=== PATIENT | male | born 1995 | race American Indian/Alaskan Native ===

== ENCOUNTER 2017-08-01 00:10 | Emergency (ER) | payer MEDICAID ==
--- NOTE | 2017-08-01 03:07 | Emergency Department Report ---
ED Animal Bite HPI - General Chief Complaint: Animal Bite Stated Complaint: ANIMAL BITE Time Seen by Provider: 08/01/17 02:16 Source: patient, family Mode of arrival: Ambulatory Limitations: No Limitations - History of Present Illness Initial Comments: Patient here reports that he was walking home at about 10 PM and a dog in his neighborhood got loose and bit him in his right palm. He is reporting there is a laceration to his right palm and he does not know if the dog is up-to-date on rabies shot. Triage nurse left messages animal control. Patient says that he always sees the [employer] walking the dog developed collar in the leash and he is pretty sure that the dog is indoor dog but he doesn't know if the dog is up-to- date on rabies shot. I discussed the patient usually after animal bite of unknown dog vaccination, and usually off for rabies vaccination and immunoglobulin. Patient wants to wait until later today to ask [employer] the dog is up-to-date on rabies vaccination because he said he speciated out is indoor dog and he probably got loose. He said the dog was not acting angry. Pain to right palm is 7 out of 10 and sharp worse with movement and better with resting. He said he placed A bandage over area because the ear was bleeding. Denies any restriction in movement fingers but reports pain with range of motion. No medication taken prior to coming to the emergency room and his tetanus vaccine is not up-to-date. Complaint: animal bite, animal-related injury, other (laceration) -: During the night Right: Hand (Palm, dog bite) Animal: dog Animal Control Notified: Yes Description: household pet, immunizations unknown, appeared well Mechanism: bite, contact with mucous membr Pain Description: sharp, intermittent Severity scale (0 -10): 7 Context: unprovoked Associated Symptoms: bleeding. denies: erythema, discharge from wound, fever, chills, rash, loss of consciousness, cough, headache, diaphoresis, shortness of breath Treatments Prior to Arrival: wound dressing(s) - Related Data Patient Tetanus UTD: No Previous Rx's Medication Instructions Recorded Last Taken Type Amoxicillin/K Clav Tab [Augmentin 1 tab PO Q12HR 10 Days #20 tab 08/01/17 Unknown Rx 875 mg] HYDROcodone/ACETAMINOPHEN [Kerby 1 each PO Q6H PRN #12 tablet 08/01/17 Unknown Rx 5-325 Tablet] Ibuprofen [Motrin] 600 mg PO Q8H PRN #21 tablet 08/01/17 Unknown Rx Allergies Allergy/AdvReac Type Severity Reaction Status Date / Time No Known Allergies Allergy Unverified 08/01/17 01:15 ED Review of Systems ROS: Stated complaint: ANIMAL BITE Other details as noted in HPI Comment: All other systems reviewed and negative Constitutional: no symptoms reported ENT: denies: throat pain Respiratory: no symptoms reported Cardiovascular: denies: chest pain, palpitations, edema, syncope Gastrointestinal: denies: abdominal pain, nausea, vomiting Musculoskeletal: arthralgia. denies: back pain, joint swelling, myalgia Skin: other (laceration from dog bite) Neurological: denies: headache, weakness, numbness, paresthesias, confusion, abnormal gait ED Past Medical Hx - Past Medical History Previous Medical History?: No - Surgical History Past Surgical History?: No - Family History Family history: no significant - Social History Smoking Status: Never Smoker Substance Use Type: None - Medications Home Medications: Home Medications Medication Instructions Recorded Confirmed Last Taken Type Amoxicillin/K Clav Tab [Augmentin 1 tab PO Q12HR 10 Days #20 tab 08/01/17 Unknown Rx 875 mg] HYDROcodone/ACETAMINOPHEN [Kerby 1 each PO Q6H PRN #12 tablet 08/01/17 Unknown Rx 5-325 Tablet] Ibuprofen [Motrin] 600 mg PO Q8H PRN #21 tablet 08/01/17 Unknown Rx ED Physical Exam - General Limitations: No Limitations General appearance: alert, in no apparent distress - Head Head exam: Present: atraumatic, normocephalic, normal inspection, other (normal exam) - Eye Eye exam: Present: normal appearance, PERRL, EOMI Pupils: Present: normal accommodation - ENT ENT exam: Present: normal exam, normal orophraynx, mucous membranes moist - Neck Neck exam: Present: normal inspection, full ROM, other (no C-spine tenderness). Absent: tenderness, meningismus, lymphadenopathy - Respiratory Respiratory exam: Present: normal lung sounds bilaterally. Absent: respiratory distress, chest wall tenderness - Cardiovascular Cardiovascular Exam: Present: regular rate, normal rhythm, normal heart sounds - Extremities Exam Extremities exam: Present: normal inspection, full ROM, tenderness (right Palm around laceration site), normal capillary refill, other (no clubbing, cyanosis or edema. +2 pulses to extremities. No neurovascular compromise. Patient with laceration to right palm, no signs of infection. No contusion or abrasions noted. No neurovascular compromise). Absent: pedal edema, joint swelling, calf tenderness - Expanded Upper Extremity Exam Right General: Present: laceration. Absent: normal inspection, abrasion, nail injury (#), foreign body, amputation, avulsion Shoulder Exam: Present: normal inspection, full ROM. Absent: tenderness, swelling, abrasion, laceration, ecchymosis, deformity, crepidus, dislocation, erythema, tenderness over AC joint Upper Arm exam: Present: normal inspection, full ROM. Absent: tenderness, swelling, abrasion, laceration, ecchymosis, deformity, crepidus, dislocation, erythema Elbow exam: Present: normal inspection, full ROM. Absent: tenderness, swelling , abrasion, laceration, ecchymosis, deformity, crepidus, dislocation, erythema, effusion, pain w/ pronation/supination, tenderness over radial head Forearm Wrist exam: Present: normal inspection, full ROM. Absent: tenderness, swelling, abrasion, laceration, ecchymosis, deformity, crepidus, dislocation, erythema, tenderness over anatomical snuff box, pain with axial thumb loading Hand Wrist exam: Present: full ROM (patient with full active range of motion but he reports pain to laceration site at right palm with movement of his fingers of right hand and he is right-handed.), tenderness (around laceration site to right palm.), laceration (right palm). Absent: normal inspection, swelling, abrasion, ecchymosis, deformity, crepidus, dislocation, erythema, amputation, nail avulsion, subungual hematoma Neuro motor exam: Present: wrist extension intact, thumb opposition intact, thumb IP flexion intact, thumb adduction intact, fingers 2-5 abduction intact Neurosensory exam: Present: 2-point discrimination, radial nerve intact, ulnar nerve intact, median nerve intact Vascular: Present: normal capillary refill, radial pulse, brachial pulse, ulnar pulse. Absent: vascular compromise, Pallo, pulse deficit radial art, pulse deficit ulnar art, pulse deficit brachial art - Back Exam Back exam: Present: normal inspection, full ROM, other (in place without any difficulties) - Neurological Exam Neurological exam: Present: alert, oriented X3, normal gait, reflexes normal. Absent: motor sensory deficit - Psychiatric Psychiatric exam: Present: normal affect, normal mood - Skin Skin exam: Present: warm, dry, normal color, other (laceration right palm) - Expanded Skin Exam Expanded Type of lesion: Present: laceration (right palm) Distribution of rash: RUE (right palm) Description of rash: Present: size (1 cm), tenderness, other (skin bleeding). Absent: erythematous, swelling, petechial, crusting, discharge ED Course Vital Signs 08/01/17 08/01/17 08/01/17 00:44 01:06 03:22 Temperature 98.7 F 98.7 F Pulse Rate 54 L 53 L Respiratory 18 18 18 Rate Blood Pressure 128/70 128/70 O2 Sat by Pulse 99 100 Oximetry - Reevaluation(s) Reevaluation #1: 08/01/17 03:47 Patient given Percocet 5/325 2 tablets by mouth in emergency room for pain., He was also given Ancef 1 g IM , booster 0.5 mL IM with no adverse reaction. Patient started on Augmentin by mouth. He decided that he was in await until later this morning to find out if dog is up-to-date on his vaccination to include rabies. See signed AMA on chart with patient refusing rabies vaccination until he finds out if the dog is up-to-date. He said he'll come back later today if the dog is not up-to-date. 08/01/17 04:02 Reevaluation #2: 08/01/17 04:02 Patient is stable and pain is controlled. X-ray report negative for fracture dislocation - Laceration /Wound Repair Right Palm Hand Wound Location: upper extremity (right Palm) Wound Length (cm): 1 Wound's Depth, Shape: superficial Wound Explored: no foreign body removed Irrigated w/ Saline (ccs): 500 Betadine Prep?: Yes Volume Anesthetic (ccs): 0 Wound Debrided: moderate Wound Repaired With: Steri-strips (5 Steri-Strips used loosely at laceration site) Number of Sutures: 5 Layer Closure?: No Sterile Dressing Applied?: Yes (sterile bulky dressing placed inside.) Critical care attestation.: If time is entered above; I have spent that time in minutes in the direct care of this critically ill patient, excluding procedure time. ED Disposition Clinical Impression: Hand pain, right Dog bite of right hand without complication Qualifiers: Encounter type: initial encounter Qualified Code(s): S61.451A - Open bite of right hand, initial encounter Laceration of right hand without complication, excluding fingers Qualifiers: Encounter type: initial encounter Qualified Code(s): S61.411A - Laceration without foreign body of right hand, initial encounter Disposition: - TO HOME OR SELFCARE Is pt being admited?: No Does the pt Need Aspirin: No Condition: Stable Instructions: Laceration (ED), Skin Adhesive Care (ED), Arthralgia (ED), Acute Wound Care (ED) Additional Instructions: Take antibiotic as prescribed Follow-up with your primary care physician in 2 days and if he do not have a primary care physician follow-up at [facility]. Keep affected area clean and dry. 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 Please return to emergency room if you develop increasing redness, streaking, fever, difficulty moving fingers of right hand or difficulty moving her right hand and/or wrist. You decided to wait to get rabies vaccine. Please ask the dog on her tomorrow if the dog is up-to-date on rabies and or F this is a indoor dog and if not you need to return to the hospital tomorrow to get started on rabies vaccination and immunoglobulin. Prescriptions: Amoxicillin/K Clav Tab [Augmentin 875 mg] 1 tab PO Q12HR 10 Days #20 tab HYDROcodone/ACETAMINOPHEN [Kerby 5-325 Tablet] 1 each PO Q6H PRN #12 tablet PRN Reason: moderate to severe pain Ibuprofen [Motrin] 600 mg PO Q8H PRN #21 tablet PRN Reason: Pain Referrals: [facility] [Outside] - 08/02/17 Forms: Accompanied Note, Work/School Release Form(ED), AMA Form ED Medical Decision Making - Radiology Data Radiology results: report reviewed X-ray of right hand reveal no acute fracture or dislocation. - Medical Decision Making ED course: She presented to emergency room after being in bitten by a dog in his neighborhood during the night. He is reporting pain that is localized to his right palm. Physical findings for laceration to right palm with scant amount of bleeding. X-ray of right hand reveal no acute fracture or dislocation. Patient with no neurovascular compromise and he is able to move fingers and wrist of right upper extremity without any difficulties. No signs of infection and pain is localized around the laceration site. Please refer to procedure note for details on laceration repair. Patient was given Ancef 1 g IM , booster 0.5 mL to update tetanus. Percocet 5/325 mg 2 tablet by mouth for pain. I discussed the patient rabies vaccination and immunoglobulin. Please refer to AMA form on chart for details. Patient reports that he is pretty sure that the dog lives [place] and that he always sees the dog with his [employer] and the dog is always in the lesion has a collar. He said the dog did not looksick and that he wants to wait until later today to ask the [employer] if the dog is up-to -date on rabies vaccination or physical possibly that the dog may have rabies if he lives in the mounter [employer]'s backyard and he will return later today if he needs to to get rabies vaccination and immunoglobulin. Patient had x-ray of right hand which revealed no acute fracture dislocation and he was given report of x- ray. Patient given first dose of Augmentin by mouth in emergency room. Discharged home in stable condition with family with prescription for Kerby, Motrin and Augmentin. I instructed patient to follow-up with outside [facility] in 2 days status post dog bite and if he cannot get in to [facility] to follow back up in the emergency room.
[2017-08-01] MEDS ORDERED: PERCOCET 5/325 PO ONE (03:08)
[2017-08-01] MEDS ORDERED: NACL 0.9% IR ONE (03:08)
[2017-08-01] MEDS ORDERED: ANCEF IM ONE (03:16)
[2017-08-01] MEDS ORDERED: BOOSTRIX IM ONE (03:16)
[2017-08-01] MEDS ORDERED: AUGMENTIN 875 MG PO ONE (03:17)
--- NOTE | 2017-08-01 03:27 | XRay Report ---
FINAL REPORT EXAM: XR HAND 3+V RT HISTORY: dog bite with laceration rt palm TECHNIQUE: Three views of the right hand were submitted. FINDINGS: There is no evidence of fracture or soft tissue injury. The wrist joint appears normal. There is slight contour deformity of the shaft of the 5th metacarpal suggesting a well-healed remote fracture. IMPRESSION: No acute fracture or soft tissue injury.
[2017-08-01 04:19] VITALS: BP 124/71
== END 2017-08-01 04:19 | disposition home or self-care (01) ==
LOC: ED 00:10
DX: S61.451A Open bite of right hand, initial encounter (principal); W54.0XXA Bitten by dog, initial encounter; Y93.89 Activity, other specified; Y92.89 Other specified places as the place of occurrence of the external cause; Y99.8 Other external cause status
CPT/HCPCS: 12001; 73130; 90471; 90715; 96372; 99283; J0690